=== PATIENT | male | born 1980 | race Caucasian/White ===

== ENCOUNTER 2016-09-16 17:35 | Emergency (ER) | payer OTHER ==
[~2016-09-16] VITALS: Ht 177.8 cm; Wt 93.2 kg
[2016-09-16] MEDS ORDERED: PERCOCET 5MG/325MG TAB PO ONE ×2 (19:45→22:45)
[2016-09-16] MEDS ORDERED: TAMSULOSIN 0.4 MG CAP PO ONE (19:45)
[2016-09-16 20:02] LABS: BASO # 0.1 K/mm3 (0.0-0.2); EOS # 0.2 K/mm3 (0.0-0.50); EOS % 2.8 % (0.0-3.0); LARGE UNSTAINED CELL # 0.2 K/mm3 (0.0-0.4); LARGE UNSTAINED CELL % 1.8 % (0.0-4.0); LYMPH # 2.6 K/mm3 (1.5-4.5); LYMPH % 32.1 % (24.0-44.0); MEAN CORPUSCULAR HGB CONC 33.4 g/dl (32.0-36.5); MONO # 0.5 K/mm3 (0.0-0.8); MONO % 6.5 % (0.0-5.0); NEUTROPHILS # 4.5 K/mm3 (1.8-7.7); NEUTROPHILS % 55.8 % (36.0-66.0); PLATELET COUNT, AUTOMATED 225 k/mm3 (150-450); RED CELL DISTRIBUTION WIDTH 12.7 % (11.5-14.5)
[2016-09-16] MEDS ORDERED: MORPHINE 4 MG/ML 1ML SYRINGE IV ONE (20:30)
[2016-09-16 20:31] LABS: ALBUMIN 3.9 GM/DL (3.2-5.2); ALKALINE PHOSPHATASE 60 U/L (45-117); ALT/SGPT 45 U/L (12-78); ANION GAP 5 MEQ/L (8-16); AST/SGOT 19 U/L (15-37); BILIRUBIN,TOTAL 0.4 MG/DL (0.2-1.0); BLOOD UREA NITROGEN 19 MG/DL (7-18); CALCIUM LEVEL 8.5 MG/DL (8.5-10.1); CARBON DIOXIDE LEVEL 29 MEQ/L (21-32); CHLORIDE LEVEL 105 MEQ/L (98-107); CREATININE FOR GFR 1.22 MG/DL (0.70-1.30); GLOMERULAR FILTRATION RATE > 60.0 (>60); GLUCOSE, FASTING 89 MG/DL (70-105); POTASSIUM SERUM 4.2 MEQ/L (3.5-5.1); SODIUM LEVEL 139 MEQ/L (136-145); TOTAL PROTEIN 6.9 GM/DL (6.4-8.2)
--- NOTE | 2016-09-16 20:43 | REP ---
Clinical: Left flank pain. Technique: Real time head scale ultrasound examination using curved array transducer. Findings: Right kidney is normal in contour, size, echogenicity and reniform shape without hydronephrosis, nephrolithiasis or cystic or mass lesion and measures 11.1 x 5.7 x 5.8 cm. Left kidney measures 11.1 x 5.3 x 5.8 cm without hydronephrosis and includes 5 mm nonobstructing renal calculus as well as 2.2 cm upper pole hypoechoic mass versus proteinaceous cyst. Bladder is collapsed. Impression: 1. Left kidney with 5 mm nonobstructing calculus and 2.2 cm hypoechoic lesion which may reflect mass versus proteinaceous cyst. 2. Normal right kidney and collapsed bladder. Signed by Richard Velez MD 09/16/2016 08:35 P
[2016-09-16] MEDS ORDERED: ISOVUE-370 76% 100ML VIAL (Q9967) As Ordered ONE (21:16)
[2016-09-16 21:50] VITALS: BP 119/70
--- NOTE | 2016-09-16 22:10 | REPUSA ---
CT of the abdomen and pelvis with and without contrast Clinical statement: left renal mass. Technique: Multiple axial CT images were obtained from the base of the lungs through the floor of the pelvis utilizing 5 mm axial slices before and after administration of nonionic intravenous contrast. 3D, coronal and sagittal reconstructions were also obtained. Comparison: None. Findings: Chest: The visualized lung bases are clear. Abdomen: The liver, spleen, pancreas, kidneys, gallbladder, and adrenal glands are unremarkable. No f ocal renal masses are identified. The aorta is within normal limits. There is no evidence of abdomina l lymphadenopathy or ascites. Pelvis: The bowel is unremarkable, with no obstructive or inflammatory changes. The appendix is sada l. The appendix is normal. The urinary bladder is within normal limits. The other pelvic structures a ppear grossly intact. There is no evidence of pelvic lymphadenopathy or ascites. Bones: There are no suspicious osseous abnormalities seen. Impression: 1.. No focal renal mass is identified. 2. No acute abdominal abnormality appreciated.
[2016-09-16] MEDS ORDERED: FLOM5CAP PO (22:29)
[2016-09-16] MEDS ORDERED: PERC5TAB12 PO (22:30)
== END 2016-09-16 22:53 | disposition home or self-care (01) ==
LOC: M ED 17:35
DX: N20.0 Calculus of kidney (principal)
CPT/HCPCS: 74178; 76775; 80053; 81001; 85025; 96374; 99283; Q9967

== ENCOUNTER 2018-11-18 11:49 | Emergency (ER) | payer OTHER ==
[~2018-11-18] VITALS: Ht 172.7 cm; Wt 97.0 kg
[~2018-11-18 11:49] MED LIST: FLOM0.4C39 PO; PERC5TAB12 PO
[2018-11-18 11:50] VITALS: BP 118/81
[2018-11-18] MEDS ORDERED: COLA100C5 PO (12:57)
[2018-11-18] MEDS ORDERED: IBUP80TA PO (12:57)
[2018-11-18] MEDS ORDERED: IBUPROFEN 600 MG TAB PO ONE (13:15)
[2018-11-18] MEDS ORDERED: NORC1TAB7 PO (14:22)
[2018-11-18] MEDS ORDERED: LEVA1TAB2 PO (14:22)
[2018-11-18] MEDS ORDERED: cefTRIAXone SOD 250 MG VIAL (J0696) IM ONE (14:30)
[2018-11-18] MEDS ORDERED: LIDOCAINE 1% SDV 5 ML VIAL DILUENT ONE (14:30)
[2018-11-18] MEDS ORDERED: NORCO, ANEXSIA 5/325MG TABLET (HYDROcodone/ACETAMINOPHEN) PO ONE (15:00)
[2018-11-18 15:05] LABS: CHLAMYDIA DNA AMPLIFICATION NEGATIVE (NEGATIVE); GC DNA AMPLIFICATION NEGATIVE (NEGATIVE)
--- NOTE | 2018-11-18 17:29 | REP ---
Scrotal sonography: History: Testicular pain. Findings: The right testis measures 5.2 x 3.0 x 3.2 cm. Left testicular dimensions by ultrasound are 5.0 x 2.7 x 3.5 cm. There is a 0.4 x 0.2 x 0.3 cm cyst in the left testis medially just beneath the tunica. No testicular mass lesion is seen on either side. Testicular Doppler flow is normal bilaterally. Resistive indices are 0.58 and 0.51 on the right and left respectively by Doppler. Epididymi are unremarkable. No other abnormality. Impression: A 0.4 cm cyst in the left testis. Normal Doppler flow. No other abnormality. Electronically Signed by Jonah Cerda MD 11/18/2018 06:03 P
== END 2018-11-18 15:11 | disposition home or self-care (01) ==
LOC: M ED 11:49
DX: N45.1 Epididymitis (principal); N50.3 Cyst of epididymis; Z79.899 Other long term (current) drug therapy
CPT/HCPCS: 76870; 81001; 87491; 87591; 93976; 96372; 99283; J0696